=== PATIENT | male | born 1970 | race Caucasian/White ===

== ENCOUNTER 2017-08-11 10:31 | Outpatient (CLI) | payer OTHER ==
--- NOTE | 2017-08-11 12:04 | Ultrasound Report ---
LIVER ULTRASOUND: 08/11/2017 CLINICAL INDICATION: Elevated LFTs. TECHNIQUE: Real-time scanning was performed with office services representative static images obtained. FINDINGS: The liver measures 20 cm. Hepatic echogenicity is increased, compatible with fatty infiltration. A 7 mm cyst is noted in the left lobe. No solid lesion is seen. The common bile duct measures 4 mm. IMPRESSION: FATTY INFILTRATION OF THE LIVER. SMALL INCIDENTAL CYST IN THE LEFT LOBE. TD: 08/11/2017 12:03 [facility]
== END 2017-08-11 10:32 | disposition home or self-care (01) ==
LOC: DI 10:31
PROVIDERS: ATTEND Internal Medicine
DX: K76.0 Fatty (change of) liver, not elsewhere classified (principal)
CPT/HCPCS: 76705

== ENCOUNTER 2022-09-30 09:28 | Outpatient (CLI) | payer OTHER ==
--- NOTE | 2022-09-30 10:13 | SLEEP CARE CONSULTATION ---
Information from patient questionnaire entered by Bell Meneses. I have reviewed and concur with the information entered by Bell Meneses. This document represents the service I personally performed and the decisions made by me, Manjula Centeno ARNP. History of Present Illness Service Date and Time: 09/30/2022927 Reason for Visit: New patient, Previously diagnosed sleep apnea, sleep apnea on CPAP therapy Chief Complaint: reports: Other ([facility]ARE) Date of Onset: 12YRS Usual bedtime: 9-10PM Time it takes to fall asleep: 3MIN Snores at night: Yes Observed to quit breathing while asleep: Yes Sleeps alone due to snoring: No Number of times waking at night: 2-3 Reasons for waking at night: reports: Bathroom, Other (DAUGHTER KICKING) Toss, Turn, or Twitch while sleeping: Yes Recalls having dreams: Yes Usually gets out of bed at: 6-7AM Feels refreshed in the morning: Yes Morning headache: No Sleepy or fatigued during the day: No Ever fallen asleep while driving: No Takes day naps: No Dreams during day naps: No Prior sleep studies: Yes Year and Where: [facility] 2010 Additional HPI information: NEVIN SANCHES was previously diagnosed to have severe, AHI 38.7, obstructive sleep apnea-hypopnea syndrome as shown in sleep study dated 06/19/2009 at [facility] and comes in today to establish care for BIPAP therapy. - Parasomnia Symptoms Ever been unable to move upon waking from sleep: No Walks in sleep: No Talks in sleep: No Ever acted out dreams in sleep: No Ever felt weak in the knees when startled or emotional: No Bothered by creepy, crawly, restless sensations in legs: No Problems with memory or concentration: No CPAP Compliance Data - Data Reviewed with Patient Average duration of nightly device use: 7 hours 44 minutes Compliance rate %: 100 ( days used) Current pressure setting (cmH2O): 14/4 with pressure support (max 6, min 2) Average residual AHI: 3.5 Central apnea: 0.4 Obstructive apnea: 1.1 Hypopnea: 2.0 Average large leak: 0 Compliance data discussion: He has a [employer] BIPAP that was setup in 2019. He just received his new machine from [email or web address] but has not had time to get it set up. He is getting his supplies from the [employer]. He is using a nasal cushion that goes over the nose. He uses an oral appliance when travelling. Subjective Patient concerns: denies: aerophagia, mask discomfort, air blowing in eyes, mask leak noise, condensation in mask/hose, nasal congestion, dry mouth, nose, throat, epistaxis Observed to snore while using device: No Current pressure setting perceived as: comfortable On therapy, patient: reports: sleeping better, awakening more refreshed, being more awake and alert during the day, more rested overall. denies: drowsiness while driving Initial [place] Sleepiness Scale score: 4 (09/29/22) Past Medical History Past Medical History: reports: Hypertension, Hypothyroidism, Other (Pre- Diabetic) Social History The patient's occupation is a RE. Patient is and lives in [place]. Have you smoked in the past 12 months: No Alcohol use: Yes Alcohol amount and frequency: 1PER WEEK AVERAGE Caffeine use: Yes Caffeine amount and frequency: 2 PER DAY Family History Family history of sleep disordered breathing: No Allergies and Home Medications Known drug allergies: No Drug allergies reviewed: Yes Home medication list reviewed: Yes Allergy and home medication list: Allergies No Known Drug Allergies Allergy (Verified 09/29/22 09:55) Medications: Lisinopril Levothyroxine Atorvastatin Metformin 1000 mg daily Review of Systems Weight loss over past 5 years: 30 lbs in last 2 yrs Cardiovascular: reports: high blood pressure Gastrointestinal: denies: heartburn Neurological: denies: headaches Psychiatric: denies: anxiety, depression Endocrine: reports: thyroid disease Musculoskeletal: reports: back pain Physical Exam Vital signs obtained and entered by: BELL Dhaliwal MA Blood Pressure: 162/110 (LEFT ARM) Cuff size: regular Heart Rate: 71 O2 Saturation: 97 Height: 6 ft Weight: 267 lb 12.8 oz Body Mass Index: 36.3 BMI Classification: Obese Neck circumference: 18.75 Heart: regular rate and rhythm Lungs: clear bilaterally Impression and Plan 1. Obstructive Sleep Apnea-Hypopnea Syndrome, severe, with good treatment compliance and good apnea control. On BIPAP therapy, the patient has better sleep quality and is more rested overall. He has been on a BiPAP for many years. He has a DreamStation BiPAP and just received his replacement about a week ago. He is going to start using the new device. He will bring it in if the pressure is not set correctly. It should have come set right but if not then we can make adjustments as needed. Patient has significant improvement of their sleep apnea and is satisfied with current BIPAP therapy. He will use his oral appliance when he travels instead of taking his BiPAP. He states he can tell that it is not as effective as his BiPAP but is effective enough to control snoring, nightly awakenings and he feels mostly refreshed in the mornings. Patient denies problems with oral dryness, nasal congestion, epistaxis, skin irritation or aerophagia. Patient's apnea severity and rationale for treatment to reduce apnea, improve sleep quality and reduce cardiovascular and cerebrovascular events was reviewed. I also reviewed the benefit of consistent device use of BIPAP for hypertension. 2. Obesity, unspecified. Currently patients BMI is 36.3. He has been losing weight in last 2 years but has plateaued. He is set up to be evaluated by an safety investigator. Obesity increases the risk of apnea, BIPAP pressure requirements and overall health risks especially cardiovascular and diabetes. Thus, patient is advised to continue to try to lose weight. * Continue BIPAP pressure at 14/4 cmH2O with pressure support (6, max to 2, min) * Update supplies * Notify me if snoring with mask or feeling that the pressure is too much or too little * Continue to try to lose weight * Call this office if any problems using BIPAP * Return for follow up in 1 year, or sooner if concerns arise Counseling Topics: Spare mask, Weight loss health impact Visit Type: In Office Time Spent with Patient (minutes): 33 Provider Statement: I spent 100% of the Face to Face Visit with the patient with greater than 50% spent counseling the patient and coordination of care.
[2022-09-30 10:27] VITALS: BP 162/110
== END 2022-09-30 09:29 | disposition home or self-care (01) ==
LOC: SC 09:28
PROVIDERS: ATTEND Nurse Practitioner Family
DX: G47.33 Obstructive sleep apnea (adult) (pediatric) (principal); E66.9 Obesity, unspecified; Z68.36 Body mass index [BMI] 36.0-36.9, adult
CPT/HCPCS: 99203; 99212

== ENCOUNTER 2023-07-25 15:54 | Emergency (ER) | payer OTHER ==
[2023-07-25 16:02] VITALS: BP 160/88; O2SAT 99
[2023-07-25] MEDS: BUFFERED LIDOCAINE 10 ML SYRINGE SUBQ STA (16:15)
--- NOTE | 2023-07-25 16:20 | ED Physician Documentation ---
PD HPI UPPER EXT INJURY - Stated complaint Stated Complaint: R THUMB LAC - Chief complaint Chief Complaint: Laceration - History obtained from History obtained from: Patient - Additonal information Additional information: Patient is a 53-year-old male presenting for evaluation of right thumb laceration that occurred just prior to arrival. Patient was cleaning a ninja molder feeder blade when he accidentally cut himself. He does not take a blood thinner. He states his last tetanus was within the last few years But will check with his . He is right-hand dominant. Review of Systems Skin: reports: Laceration (s) PD PAST MEDICAL HISTORY - Past Medical History Past Medical History: Yes Cardiovascular: Hypertension, High cholesterol Respiratory: CPAP use Endocrine/Autoimmune: None, HyPOthyroidism GI: None : None Psych: None Musculoskeletal: Other - Past Surgical History Past Surgical History: Yes Ortho: ACL reconstruction - Present Medications Home Medications: Ambulatory Orders Medication Instructions Recorded Confirmed Atorvastatin Calcium [Lipitor] See Rx Instructions .ROUTE .COMPLEX 09/20/14 09/30/22 Levothyroxine Sodium [Synthroid] See Rx Instructions .ROUTE .COMPLEX 09/20/14 09/30/22 Lisinopril See Rx Instructions .ROUTE .COMPLEX 09/20/14 09/30/22 Ascorbic Acid [Vitamin C] See Rx Instructions .ROUTE .COMPLEX 09/30/22 09/30/22 Calcium Carbonate [Calcium] See Rx Instructions .ROUTE .COMPLEX 09/30/22 09/30/22 Cholecalciferol (Vitamin D3) See Rx Instructions .ROUTE .COMPLEX 09/30/22 09/30/22 [Vitamin D3] Lactobacillus Combination No.4 See Rx Instructions .ROUTE .COMPLEX 09/30/22 09/30/22 [Probiotic] Magnesium See Rx Instructions .ROUTE .COMPLEX 09/30/22 09/30/22 Metformin HCl [Metformin ER See Rx Instructions .ROUTE .COMPLEX 09/30/22 09/30/22 Gastric] [place]-3/Dha/Epa/Fish Oil [Fish Oil See Rx Instructions .ROUTE .COMPLEX 09/30/22 09/30/22 1,000 mg Softgel] Ubidecarenone [Co Q-10] See Rx Instructions .ROUTE .COMPLEX 09/30/22 09/30/22 Zinc Gluconate [Zinc] See Rx Instructions .ROUTE .COMPLEX 09/30/22 09/30/22 - Allergies Allergies/Adverse Reactions: Allergies Allergy/AdvReac Type Severity Reaction Status Date / Time No Known Drug Allergies Allergy Verified 07/25/23 16:00 - Social History Does the pt smoke?: No Smoking Status: Never smoker Does the pt drink ETOH?: Yes Does the pt have substance abuse?: No - Immunizations Immunizations are current?: Yes PD ED PE NORMAL - General General: Alert and oriented X 3, No acute distress, Well developed/nourished - HEENT HEENT: Atraumatic - Cardiac Cardiac: Strong equal pulses - Respiratory Respiratory: No respiratory distress - Derm Derm: Warm and dry - Extremities Extremities: Other (2 cm laceration to distal right thumb, normal range of motion at all joints, no nail involvement) - Neuro Neuro: Alert and oriented X 3, No motor deficit, No sensory deficit, Normal speech Results - Vitals Vitals: Vital Signs - 24 hr 07/25/23 15:57 Temperature 36.0 C L Heart Rate 62 Respiratory 20 Rate Blood Pressure 160/88 H O2 Saturation 99 Oxygen O2 Source Room air Procedures - Laceration (location) R thumb Length in cm: 2.5 Wound type: Linear, Curved Neurovascular status: Sensory intact, Motor intact, Vascular intact Tendon involvement: Tendon intact Anesthesia: Lidocaine 1% Wound preparation: Chlorhexadine, Hibiclens Skin layer closure: Size #-0 - enter number (4-0), Sutures - enter # (7) Other: Patient tolerated well, No complications, Neurovascular intact, Dressing applied, Tetanus booster given PD Medical Decision Making - ED course ED course: Pt with R thumb laceration. Neurovascularly intact. Patient reports his tetanus is up-to-date and is aware that I do not have one on file but he will check also with his who is a primary care physician. Wound was cleaned and sutured with good hemostasis. Dressing was applied. Patient counseled on wound care instructions, need to return for suture removal as well as concerning symptoms to return for. Departure - Departure Disposition: 01 Home, Self Care Clinical Impression: Laceration of thumb Condition: Stable Instructions: ED Laceration Ext Sutr Stap Tape Comments: Diagnosis: Right thumb laceration You have a laceration to your right thumb that was cleaned and closed with 7 sutures. These should stay in for approximately 14 days. You can return to the ER or the walk-in clinic to have them removed. Please keep the dressing that we have applied on today for 24 hours to allow for the wound to start healing. You can then remove the dressing but I would recommend keeping it covered if you are working with anything dirty or to help prevent you from accidentally bumping it against anything Which could cause it to rebleed. Come back for any signs of infection which would include: Redness, swelling, drainage, increased pain, or fevers. You can wash it soap and water. Keep it covered and moist with bacitracin ointment which is available over the counter; avoid neosporin. Follow-up with your physician in about 14 days for suture removal. Forms: PCP List Discharge Date/Time: 07/25/23 17:18
[2023-07-25] MEDS: TETANUS/DIPHTHERIA/PERTUSSIS 0.5 ML SYRINGE IM ONE (17:13)
== END 2023-07-25 17:18 | disposition home or self-care (01) ==
LOC: ED 15:54
DX: S61.011A Laceration without foreign body of right thumb without damage to nail, initial encounter (principal); W29.0XXA Contact with powered kitchen appliance, initial encounter; I10 Essential (primary) hypertension
CPT/HCPCS: 12001; 90471; 99283

== ENCOUNTER 2023-10-19 14:34 | Outpatient (CLI) | payer OTHER ==
--- NOTE | 2023-10-19 14:58 | Sleep Patient Instructions ---
Sleep Center Visit Summary - Patient Visit Information Reason for Visit: Annual follow-up - Patient Instructions Additional Instructions: You will continue with BiPAP therapy with pressure set at 14/4 cmH2O. A supply prescription will be updated with your DME. We encourage you to continue to try to lose weight. Please follow up with the sleep care office in 1 year. - Clinic Information Contact: [facility] [address] [place] [address] [email or web address] T: [phone]
--- NOTE | 2023-10-19 15:02 | SLEEP CARE CONSULTATION ---
Information from patient questionnaire entered by Bell Meneses. I have reviewed and concur with the information entered by Bell Meneses. This document represents the service I personally performed and the decisions made by , Manjula Centeno ARNP. History of Present Illness Service Date and Time: 10/19/2023 1440 Previous diagnosis: Severe, Obstructive Sleep Apnea-Hypopnea Syndrome AHI: 38.7 (06/19/2009) Reason for follow up: annual (LAST SEEN 09/2022) Equipment type: BiPAP ([employer] Dreamstation BiPAP, NEED MACHINE) Equipment obtained [place]: [place] ([facility]) Mask style: Full face Backup mask available: Yes Last cushion change: 1.5 months Prior sleep studies: Yes Year and Where: [facility] 2010 HPI additional information: NEVIN SANCHES was diagnosed to have severe, AHI 38.7, obstructive sleep apnea- hypopnea syndrome and returned today for BIPAP therapy annual follow-up. Sleep Study - Results Prior sleep studies: Yes Year and Where: [facility] 2010 CPAP Compliance Data - Data Reviewed with Patient Average duration of nightly device use: 6 hours 50 mins Compliance rate %: 88.3 (168/180 days used) Current pressure setting (cmH2O): 14/4 with 2-6 pressure support Average residual AHI: 4.1 Average large leak: 9 secs Subjective Missed days of use due to: reports: travel (uses oral device when traveling) Patient concerns: reports: aerophagia (very minimal), mask leak noise (occaisional), nasal congestion (only from winter and some allergies). denies: mask discomfort, air blowing in eyes, condensation in mask/hose, dry mouth, nose, throat, epistaxis Observed to snore while using device: No Current pressure setting perceived as: comfortable On therapy, patient: reports: sleeping better, awakening more refreshed, being more awake and alert during the day, more rested overall. denies: drowsiness while driving Initial [place] Sleepiness Scale score: 4 (09/29/22) Current [place] Sleepiness Scale score: 3 Allergies and Home Medications Known drug allergies: No Drug allergies reviewed: Yes Home medication list reviewed: Yes (Zepbound inj for weight loss) Allergy and home medication list: Allergies No Known Drug Allergies Allergy (Verified 10/14/23 15:57) Home Medications Medication Instructions Recorded Confirmed Last Taken Type Atorvastatin Calcium [Lipitor] See Rx Instructions .ROUTE .COMPLEX 09/20/14 10/19/23 09/19/14 History Levothyroxine Sodium [Synthroid] See Rx Instructions .ROUTE .COMPLEX 09/20/14 10/19/23 09/20/14 History Lisinopril See Rx Instructions .ROUTE .COMPLEX 09/20/14 10/19/23 09/20/14 History Ascorbic Acid [Vitamin C] See Rx Instructions .ROUTE .[facility] 09/30/22 10/19/23 Unknown History Calcium Carbonate [Calcium] See Rx Instructions .ROUTE .COMPLEX 09/30/22 10/19/23 Unknown History Cholecalciferol (Vitamin D3) See Rx Instructions .ROUTE .[facility] 09/30/22 10/19/23 Unknown History [Vitamin D3] Lactobacillus Combination No.4 See Rx Instructions .ROUTE .[facility] 09/30/22 10/19/23 Unknown History [Probiotic] Magnesium See Rx Instructions .ROUTE .[facility] 09/30/22 10/19/23 Unknown History Metformin HCl [Metformin ER See Rx Instructions .ROUTE .[facility] 09/30/22 10/19/23 Unknown History Gastric] [place]-3/Dha/Epa/Fish Oil [Fish Oil See Rx Instructions .ROUTE .[facility] 09/30/22 10/19/23 Unknown History 1,000 mg Softgel] Ubidecarenone [Co Q-10] See Rx Instructions .ROUTE .[facility] 09/30/22 10/19/23 Unknown History Zinc Gluconate [Zinc] See Rx Instructions .ROUTE .[facility] 09/30/22 10/19/23 Unknown History Zepbound See Rx Instructions .ROUTE .[facility] 10/19/23 10/19/23 Unknown History Review of Systems Review of systems same as previous: Yes Physical Exam Vital signs obtained and entered by: MANJULA MCKEON Blood Pressure: 131/90 Cuff size: long Heart Rate: 67 O2 Saturation: 97 Height: 6 ft 2 in Weight: 255 lb 12.8 oz Weight change since last visit: 12 lb loss Body Mass Index: 32.8 BMI Classification: Obese Impression and Plan 1. Obstructive Sleep Apnea-Hypopnea Syndrome, severe, with good treatment compliance and good apnea control. On BIPAP therapy, the patient has better sleep quality and is more rested overall. Patient has significant improvement of their sleep apnea and is satisfied with current CPAP therapy. He says he still gets a little bit of paraphasia but it does not feel like it used to be before previous changes to his pressures. He feels the pressures are comfortable at this time. He has no other concerns or issues today. Patient's apnea severity and rationale for treatment to reduce apnea, improve sleep quality and reduce cardiovascular and cerebrovascular events was reviewed. I also reviewed the benefit of consistent device use of BIPAP for hypertension. 2. Obesity, unspecified. Currently patients BMI is 32.8. Obesity increases the risk of apnea, BIPAP pressure requirements and overall health risks especially cardiovascular and diabetes. Thus patient is advised to continue to try to lose weight. * Continue BIPAP pressure at 14/4 cmH2O with pressure support 2-6 cmH2O * Update supply prescription * Notify me if snoring with mask or feeling that the pressure is too much or too little * Attempt to lose weight * Call this office if any problems using BiPAP * Return for follow up in 12 months, or sooner if concerns arise Counseling Topics: Spare mask, Weight loss health impact Prescriptions: Device supplies Follow up with Sleep Care in: 1 year Visit Type: In Office Time Spent with Patient (minutes): 22 Provider Statement: I spent 100% of the Face to Face Visit with the patient with greater than 50% spent counseling the patient and coordination of care.
[2023-10-19 15:08] VITALS: BP 131/90; O2SAT 97
== END 2023-10-19 14:35 | disposition home or self-care (01) ==
LOC: SC 14:34
PROVIDERS: ATTEND Nurse Practitioner Family
DX: G47.33 Obstructive sleep apnea (adult) (pediatric) (principal); E66.9 Obesity, unspecified; Z68.32 Body mass index [BMI] 32.0-32.9, adult
CPT/HCPCS: 99212; 99213